=== PATIENT | male | born 1945 | race Caucasian/White ===

== ENCOUNTER 2022-11-18 19:20 | Inpatient (IN) | payer OTHER ==
[2022-11-18 19:32] VITALS: BMI 21.5
[2022-11-18] MEDS ORDERED: PANTOPRAZOLE SODIUM 40 MG in SODIUM CHLORIDE 100 ML IVPB ONE (19:59)
[2022-11-18] MEDS ORDERED: ACETAMINOPHEN 1000 MG/100 ML BAG IVPB ONE (20:06)
[2022-11-18] MEDS ORDERED: ACETAMINOPHEN INJECTION 100 ML IVPB ONE (20:14)
[2022-11-18] MEDS ORDERED: PANTOPRAZOLE SODIUM 40 MG/100 ML BAG IVPB ONE (20:14)
[2022-11-18 20:21] LABS: BASO % 0.3 % (0-2.0); EOS % 0.1 % (0-4.5); HEMATOCRIT 40.8 % (35.4-49); HEMOGLOBIN 13.7 GM/dL (11.7-16.9); LYMPH % 5.7 % (8-40); MCH 29.8 pg (25.7-33.7); MCHC 33.5 g/dl (32.0-35.9); MEAN CELL VOLUME 89.1 fl (80-96); MONO % 9.4 % (3.8-10.2); NEUT % 84.5 % (42.8-82.8); PLATELET COUNT 176 10^3/uL (134-434); RBC 4.58 M/mm3 (4.00-5.60); RDW 13.8 % (11.9-15.9); RETICULOCYTES 2.15 % (0.5-1.5); WHITE BLOOD COUNT 19.1 K/mm3 (4.0-10.0)
[2022-11-18 20:34] LABS: INR 1.13 (0.83-1.09); PROTHROMBIN TIME (PATIENT) 13.1 SEC (9.7-13.0)
[2022-11-18 20:37] LABS: ACTIVATED PTT 33.8 SECONDS (25.2-36.5)
[2022-11-18 20:40] LABS: POTASSIUM 4.7 mmol/L (3.5-5.1)
[2022-11-18 20:42] LABS: CALCIUM 9.2 mg/dL (8.5-10.1)
[2022-11-18 20:43] LABS: BLOOD UREA NITROGEN 22.7 mg/dL (7-18)
[2022-11-18 20:46] LABS: CREATININE 1.5 mg/dL (0.55-1.3)
[2022-11-18 20:47] LABS: TOT PROT 7.6 g/dl (6.4-8.2)
[2022-11-18 20:48] LABS: BILIRUBIN,TOTAL 0.4 mg/dL (0.2-1)
[2022-11-18] MEDS ORDERED: SODIUM CHLORIDE 1,000 ML IV STA (20:49)
[2022-11-19] MEDS ORDERED: CEFTRIAXONE 2 GM in DEXTROSE 5%-WATER 100 ML IVPB SCH (04:50)
[2022-11-19] MEDS ORDERED: CEFTRIAXONE 2 GM/100 ML BAG IVPB ONE (05:03)
[2022-11-19 05:45] LABS: EPI CELLS >36 /uL (0-25.1); HYALINE CASTS 5 /uL (0-3.1); URINE APPEARANCE CLEAR; URINE BACTERIA 4 /uL (0-1359); URINE BILIRUBIN NEGATIVE (NEGATIVE); URINE COLOR DK YELLOW; URINE GLUCOSE (UA) NEGATIVE (NEGATIVE); URINE KETONE TRACE (NEGATIVE); URINE LEUK ESTERASE NEGATIVE (NEGATIVE); URINE NITRITE NEGATIVE (NEGATIVE); URINE PROTEIN 1+ (NEGATIVE); URINE RBC 167 /uL (0-23.9)
[2022-11-19] MEDS ORDERED: SODIUM CHLORIDE 1,000 ML IV SCH (06:30)
[2022-11-19 08:56] LABS: URINE WBC 87 /uL (0-25.8)
[2022-11-19] MEDS ORDERED: RIVASTIGMINE TARTRATE 1.5 MG CAPSULE PO SCH (10:00)
[2022-11-19] MEDS: PANTOPRAZOLE SODIUM 40 MG VIAL IVPUSH SCH (12:22)
[2022-11-19] MEDS: SERTRALINE HCL 25 MG TABLET (FP) PO SCH (12:23)
[2022-11-19] MEDS: INSULIN SLIDING SCALE (NOVOLOG) 1 VIAL SQ SCH ×3 (12:28→21:15)
[2022-11-19 12:43] LABS: BASO % 0.2 % (0-2.0); EOS % 0.3 % (0-4.5); HEMATOCRIT 36.2 % (35.4-49); LYMPH % 11.3 % (8-40); MCH 29.6 pg (25.7-33.7); MEAN CELL VOLUME 89.5 fl (80-96); MEAN PLT VOLUME 9.3 fl (7.5-11.1); MONO % 12.1 % (3.8-10.2); NEUT % 76.1 % (42.8-82.8); PLATELET COUNT 148 10^3/uL (134-434); RBC 4.05 M/mm3 (4.00-5.60); RDW 13.8 % (11.9-15.9); WHITE BLOOD COUNT 15.4 K/mm3 (4.0-10.0)
[2022-11-19 12:50] LABS: INR 1.21 (0.83-1.09)
[2022-11-19 13:02] LABS: POTASSIUM 4.4 mmol/L (3.5-5.1)
[2022-11-19 13:12] LABS: BLOOD UREA NITROGEN 20.9 mg/dL (7-18); CALCIUM 8.3 mg/dL (8.5-10.1); MAGNESIUM 1.5 mg/dL (1.8-2.4)
[2022-11-19 13:15] LABS: BILIRUBIN,TOTAL 0.3 mg/dL (0.2-1); CREATININE 1.4 mg/dL (0.55-1.3); TOT PROT 6.1 g/dl (6.4-8.2)
[2022-11-19 13:27] LABS: ALBUMIN 3.1 g/dl (3.4-5.0); PHOSPHOROUS 3.4 mg/dL (2.5-4.9)
[2022-11-19] MEDS: POLYETHYLENE GLYCOL (HEALTHYLAX) 3350 17 GM PACKET PO SCH ×2 (17:10→21:15)
[2022-11-19] MEDS: MEGESTROL ACETATE 400 MG/10 ML UNIT DOSE CUP PO SCH (17:10)
[2022-11-19] MEDS: PIPERACILLIN/TAZOB 3.375 GM 3.375 GM in DEXTROSE 5%-WATER - 50 ML IVPB SCH (20:08)
[2022-11-19] MEDS: QUEtiapine FUMARATE 100 MG TABLET (FP) PO SCH (21:15)
[2022-11-19] MEDS: RIVASTIGMINE TARTRATE 3 MG CAPSULE PO SCH (21:35)
[2022-11-20] MEDS: PIPERACILLIN/TAZOB 3.375 GM 3.375 GM in DEXTROSE 5%-WATER - 50 ML IVPB SCH ×3 (02:18→18:27)
[2022-11-20] MEDS ORDERED: LACTATED RINGERS SOLUTION 1,000 ML/1,000 ML INFUS.BAG IV SCH (03:30)
[2022-11-20] MEDS: INSULIN SLIDING SCALE (NOVOLOG) 1 VIAL SQ SCH (06:04)
[2022-11-20] MEDS: POLYETHYLENE GLYCOL (HEALTHYLAX) 3350 17 GM PACKET PO SCH ×3 (06:05→23:40)
[2022-11-20] MEDS: SERTRALINE HCL 25 MG TABLET (FP) PO SCH ×2 (10:51→11:31)
[2022-11-20] MEDS: MEGESTROL ACETATE 400 MG/10 ML UNIT DOSE CUP PO SCH ×2 (10:51→11:31)
[2022-11-20] MEDS: RIVASTIGMINE TARTRATE 3 MG CAPSULE PO SCH ×3 (10:51→21:13)
[2022-11-20] MEDS: PANTOPRAZOLE SODIUM 40 MG VIAL IVPUSH SCH (10:51)
[2022-11-20 11:21] LABS: BASO % 0.4 % (0-2.0); EOS % 1.1 % (0-4.5); HEMATOCRIT 33.7 % (35.4-49); HEMOGLOBIN 11.3 GM/dL (11.7-16.9); LYMPH % 14.3 % (8-40); MCH 29.8 pg (25.7-33.7); MCHC 33.6 g/dl (32.0-35.9); MEAN CELL VOLUME 88.7 fl (80-96); MEAN PLT VOLUME 9.2 fl (7.5-11.1); MONO % 13.6 % (3.8-10.2); NEUT % 70.6 % (42.8-82.8); PLATELET COUNT 134 10^3/uL (134-434); RDW 13.6 % (11.9-15.9); WHITE BLOOD COUNT 12.7 K/mm3 (4.0-10.0)
[2022-11-20 11:22] LABS: INR 1.28 (0.83-1.09); PROTHROMBIN TIME (PATIENT) 14.8 SEC (9.7-13.0)
[2022-11-20 12:08] LABS: CALCIUM 8.2 mg/dL (8.5-10.1)
[2022-11-20 12:11] LABS: CREATININE 1.2 mg/dL (0.55-1.3)
[2022-11-20 12:13] LABS: BILIRUBIN,TOTAL 0.3 mg/dL (0.2-1); TOT PROT 6.1 g/dl (6.4-8.2)
[2022-11-20] MEDS: QUEtiapine FUMARATE 100 MG TABLET (FP) PO SCH (21:12)
[2022-11-21] MEDS: PIPERACILLIN/TAZOB 3.375 GM 3.375 GM in DEXTROSE 5%-WATER - 50 ML IVPB SCH ×3 (01:07→17:39)
[2022-11-21] MEDS: POLYETHYLENE GLYCOL (HEALTHYLAX) 3350 17 GM PACKET PO SCH ×4 (05:58→22:38)
[2022-11-21 07:05] VITALS: RESP 20
[2022-11-21 09:27] LABS: BASO % 0.6 % (0-2.0); EOS % 2.1 % (0-4.5); HEMATOCRIT 32.4 % (35.4-49); HEMOGLOBIN 10.8 GM/dL (11.7-16.9); LYMPH % 15.2 % (8-40); MCH 29.7 pg (25.7-33.7); MCHC 33.3 g/dl (32.0-35.9); MEAN CELL VOLUME 89.2 fl (80-96); MEAN PLT VOLUME 9.4 fl (7.5-11.1); MONO % 14.6 % (3.8-10.2); NEUT % 67.5 % (42.8-82.8); PLATELET COUNT 156 10^3/uL (134-434); RBC 3.64 M/mm3 (4.00-5.60); RDW 13.2 % (11.9-15.9); WHITE BLOOD COUNT 11.1 K/mm3 (4.0-10.0)
[2022-11-21 09:54] LABS: POTASSIUM 3.8 mmol/L (3.5-5.1)
[2022-11-21 10:03] LABS: CALCIUM 8.3 mg/dL (8.5-10.1)
[2022-11-21 10:04] LABS: ALBUMIN 2.9 g/dl (3.4-5.0); BLOOD UREA NITROGEN 9.3 mg/dL (7-18); MAGNESIUM 1.4 mg/dL (1.8-2.4)
[2022-11-21 10:06] LABS: CREATININE 1.1 mg/dL (0.55-1.3); PHOSPHOROUS 3.8 mg/dL (2.5-4.9)
[2022-11-21 10:07] LABS: BILIRUBIN,TOTAL 0.5 mg/dL (0.2-1)
[2022-11-21 10:08] LABS: TOT PROT 5.8 g/dl (6.4-8.2)
[2022-11-21] MEDS: MEGESTROL ACETATE 400 MG/10 ML UNIT DOSE CUP PO SCH (11:33)
[2022-11-21] MEDS: PANTOPRAZOLE SODIUM 40 MG VIAL IVPUSH SCH (11:33)
[2022-11-21] MEDS: SERTRALINE HCL 25 MG TABLET (FP) PO SCH (11:34)
[2022-11-21] MEDS: RIVASTIGMINE TARTRATE 3 MG CAPSULE PO SCH ×3 (11:34→22:39)
[2022-11-21] MEDS: QUEtiapine FUMARATE 100 MG TABLET (FP) PO SCH ×2 (22:33→22:40)
[2022-11-22] MEDS: PIPERACILLIN/TAZOB 3.375 GM 3.375 GM in DEXTROSE 5%-WATER - 50 ML IVPB SCH ×2 (02:39→09:49)
[2022-11-22] MEDS: POLYETHYLENE GLYCOL (HEALTHYLAX) 3350 17 GM PACKET PO SCH (06:39)
[2022-11-22 09:48] VITALS: BP 124/79; PULSE 84; TEMP 97.3
[2022-11-22] MEDS: MEGESTROL ACETATE 400 MG/10 ML UNIT DOSE CUP PO SCH (09:55)
[2022-11-22] MEDS: SERTRALINE HCL 25 MG TABLET (FP) PO SCH (09:55)
[2022-11-22] MEDS: RIVASTIGMINE TARTRATE 3 MG CAPSULE PO SCH (09:55)
== END 2022-11-22 13:47 | disposition home health service (06) | DRG 378 ==
LOC: JER 19:20 → EDBD 19:20 → JERBED 20:48 → J5S 11-19 07:36
PROVIDERS: ADMIT Internal Medicine
PROC: 0DBN8ZX Excision of Sigmoid Colon, Via Natural or Artificial Opening Endoscopic, Diagnostic (ICD-10-PCS; 2022-11-20)
PROC: 0DBP8ZX Excision of Rectum, Via Natural or Artificial Opening Endoscopic, Diagnostic (ICD-10-PCS; principal; 2022-11-20 12:00)
DX: K62.5 Hemorrhage of anus and rectum (principal); C20 Malignant neoplasm of rectum; K55.9 Vascular disorder of intestine, unspecified; R64 Cachexia; K62.89 Other specified diseases of anus and rectum; E78.5 Hyperlipidemia, unspecified; R19.5 Other fecal abnormalities; D72.829 Elevated white blood cell count, unspecified; E11.9 Type 2 diabetes mellitus without complications; F02.80 Dementia in other diseases classified elsewhere, unspecified severity, without behavioral disturbance, psychotic disturbance, mood disturbance, and anxiety; G31.83 Neurocognitive disorder with Lewy bodies
CPT/HCPCS: 36415; 71045-TC-FY; 74177-TC; 76775-TC; 80053; 81003; 82272; 82550; 82962; 83036; 83735; 84100; 84484; 85025; 85045; 85610; 85730; 86850; 86900; 86901; 87040; 87086; 88305-TC; 93005; 93010; 93306-TC; 97162-GP; 99285-25; Q9967